=== PATIENT | female | born 1945 | race Caucasian/White ===

== ENCOUNTER 2021-03-06 12:37 | Observation (INO) | payer MEDICARE, OTHER ==
[~2021-03-06] VITALS: Ht 172.7 cm; Wt 69.2 kg
[2021-03-07 08:23] VITALS: BP 105/60
== END 2021-03-07 12:50 | disposition home or self-care (01) ==
LOC: OR 12:37 → ORIP 21:25 → 4NE 21:34
PROVIDERS: ADMIT Orthopaedic Surgery; ATTEND Orthopaedic Surgery
DX: S52.571A Other intraarticular fracture of lower end of right radius, initial encounter for closed fracture (principal); I25.10 Atherosclerotic heart disease of native coronary artery without angina pectoris; W18.30XA Fall on same level, unspecified, initial encounter; Y93.01 Activity, walking, marching and hiking; Y92.89 Other specified places as the place of occurrence of the external cause; Z79.899 Other long term (current) drug therapy